=== PATIENT | male | born 1995 | race Hispanic/Latino ===

== ENCOUNTER 2017-12-07 07:04 | Emergency (ER) | payer SELFPAY ==
[~2017-12-07] VITALS: Ht 185.4 cm; Wt 184.1 kg
[~2017-12-07 07:04] MED LIST: AMOXICILLIN500 MG OR; AUGMENTIN875 MG OR; BACTRIM DS1 TAB OR; BACTRIM DS1 TAB PO; DENIES CURRENT MEDS; LORTAB 5 OR; NO; NO HOME MEDS; NO HOMEMEDS; PERCOCET 5/325M1 TAB OR; SEPTRA DS1 TAB OR
[2017-12-07 08:24] LABS: HEMATOCRIT 44.3 % (39.0-50.0); HEMOGLOBIN 14.9 g/dl (14.0-18.0); IMMATURE GRANULOCYTES 0.4 % (0.0-5.0); MEAN CORPUSCULAR HGB CONC 33.6 g/L CALC (32.0-36.0); NEUT# 4.16 thou/uL (1.82-7.42); RED BLOOD COUNT 4.96 mill/uL (4.70-6.10)
[2017-12-07 08:26] LABS: MEAN CELL VOLUME 89.3 fL CALC (80.0-100.0)
[2017-12-07] MEDS ORDERED: AMOXICILLIN500 M2 PO (08:50)
[2017-12-07] MEDS ORDERED: TORADOL PO (08:50)
[2017-12-07] MEDS ORDERED: DELTASONE20 MG PO (08:50)
[2017-12-07 09:10] VITALS: BP 141/70
== END 2017-12-07 09:10 | disposition home or self-care (01) | DRG 153 ==
LOC: ED 07:04
PROVIDERS: Emergency Medicine
DX: J02.9 Acute pharyngitis, unspecified (principal); R06.02 Shortness of breath; F17.210 Nicotine dependence, cigarettes, uncomplicated

== ENCOUNTER 2019-02-24 13:27 | Emergency (ER) | payer SELFPAY ==
[~2019-02-24] VITALS: Ht 185.4 cm; Wt 190.0 kg
[~2019-02-24 13:27] MED LIST changes: +AMOXICILLIN500 M2 PO; +DELTASONE20 MG PO; +TORADOL PO
[2019-02-24 14:42] LABS: URINE BILIRUBIN - DIPSTICK NEGATIVE (NEGATIVE); URINE BLOOD DIPSTICK NEGATIVE (NEGATIVE); URINE COLOR YELLOW; URINE GLUCOSE - DIPSTICK NEGATIVE (NEGATIVE); URINE KETONE NEGATIVE (NEGATIVE); URINE LEUK ESTERASE NEGATIVE (NEGATIVE); URINE NITRITE - DIPSTICK NEGATIVE (Negative); URINE PROTEIN - DIPSTICK NEGATIVE (NEG-TRACE); URINE UROBILINOGEN - DIPSTICK 0.2 E.U./dL (0.2)
[2019-02-24 14:44] LABS: IMMATURE GRANULOCYTES 0.6 % (0.0-5.0); MEAN CELL VOLUME 88.2 fL CALC (80.0-100.0); MEAN CORPUSCULAR HGB 29.4 pG CALC (26.0-32.0); MEAN CORPUSCULAR HGB CONC 33.3 g/L CALC (32.0-36.0); NEUT# 5.53 thou/uL (1.82-7.42); RED BLOOD COUNT 5.1 mill/uL (4.70-6.10); RED CELL DISTRI WIDTH 11.9 % (11.5-15.5)
[2019-02-24 14:59] LABS: ALBUMIN 4.8 g/dL (3.2-5.0); ALKALINE PHOSPHATASE 103 u/l (38-126); ANION GAP 17 (6-22 (CALC)); BILIRUBIN, TOTAL 0.5 mg/dL (0.0-1.4); BUN 8 mg/dL (9-20); BUN/CREATININE RATIO 11 (12-20 (CALC)); CARBON DIOXIDE 27 mmol/l (22-30); CHLORIDE 100 mmol/l (95-108); CREATININE 0.7 mg/dL (0.7-1.3); GFR > 60 ML/MIN (>=60 (CALC)); GFR FOR AFR.AMER. > 60 ML/MIN (>=60 (CALC)); LIPASE 96 u/l (23-300); SGOT/AST 34 u/l (17-59); SODIUM 140 mmol/l (137-146); TOTAL PROTEIN 8.7 g/dL (6.3-8.2)
[2019-02-24 15:27] VITALS: BP 128/73
[2019-02-24] MEDS ORDERED: ZOFRAN4 M1 PO (15:34)
== END 2019-02-24 15:33 | disposition home or self-care (01) | DRG 392 ==
LOC: ED 13:27
PROVIDERS: Family Medicine
DX: K52.9 Noninfective gastroenteritis and colitis, unspecified (principal); F17.200 Nicotine dependence, unspecified, uncomplicated

== ENCOUNTER 2021-05-07 12:36 | Emergency (ER) | payer SELFPAY ==
[~2021-05-07] VITALS: Ht 185.4 cm; Wt 163.6 kg
[~2021-05-07 12:36] MED LIST changes: +ZOFRAN4 M1 PO
[2021-05-07 13:19] VITALS: BP 129/65
[2021-05-07] MEDS ORDERED: MOTRIN800 MG PO (15:45)
== END 2021-05-07 16:01 | disposition home or self-care (01) | DRG 563 ==
LOC: ED 12:36
DX: S29.012A Strain of muscle and tendon of back wall of thorax, initial encounter (principal); X50.0XXA Overexertion from strenuous movement or load, initial encounter; Y93.89 Activity, other specified; Y99.0 Civilian activity done for income or pay